=== PATIENT | male | born 1995 | race Caucasian/White ===

== ENCOUNTER 2019-03-18 13:23 | Inpatient (IN) ==
[2019-03-18 14:37] LABS: Basophils # (auto) 0.03 K/uL (0-0.2); Basophils % (auto) 0.3 %; Eosinophils # (auto) 0.14 K/uL (0-0.5); Eosinophils % (auto) 1.6 %; Hematocrit (blood only) 41.2 % (42-52); Immature Granulocytes # (auto) 0.02 K/uL (0.00-0.02); Immature Granulocytes % (auto) 0.2 %; Lymphocytes # (auto) 2.25 K/uL (1.2-3.4); Lymphocytes % (auto) 25.3 %; Mean Corpuscular Hgb Conc 36.4 g/dL (32-36); Mean Corpuscular Volume 83.2 fL (80-100); Mean Platelet Volume 9.8 fL (7.4-10.4); Monocytes # (auto) 0.72 K/uL (0.11-0.59); Monocytes % (auto) 8.1 %; Neutrophils # (auto) 5.74 K/uL (1.4-6.5); Neutrophils % (auto) 64.5 %; Platelet Count 274 K/uL (130-400); RDW Coefficient of Variation 12.4 % (11.5-14.5); RDW Standard Deviation 37.4 fL (36.4-46.3); Red Blood Count 4.95 M/uL (4.7-6.1)
[2019-03-18 15:07] LABS: Albumin Level 2.9 gm/dl (3.4-5.0); BUN Creatinine Ratio 12.2 (10-20); C Reactive Protein 9.35 mg/dl (0-0.29); Calcium 10.1 mg/dl (8.5-10.1); Creatinine Clr Calc Pharmacy 143.9 ml/min; Est GFR (African American) 141.3; Potassium 4.3 mmol/L (3.5-5.1)
[2019-03-18 15:10] LABS: Albumin Globulin Ratio 0.6 (0.9-2); Bilirubin,Total 0.4 mg/dl (0.2-1); Globulin 5.2 gm/dl (2.5-4.0); Total Protein 8.1 gm/dl (6.4-8.2)
[2019-03-18] MEDS ORDERED: CEFAZOLIN 2000MG 2,000 MG/15 ML SYR IV STA (15:11)
[2019-03-18] MEDS ORDERED: METOCLOPRAMIDE HCL INJ 5 MG/ML 2 ML VIAL IV PRN (16:19)
[2019-03-18] MEDS ORDERED: ACETAMINOPHEN W/CODEINE #3 1 TAB PO PRN (16:19)
[2019-03-18] MEDS ORDERED: ACETAMINOPHEN 325 MG TAB PO PRN (16:19)
[2019-03-18] MEDS ORDERED: ONDANSETRON INJ 2 MG/ML 2 ML VIAL IV PRN (16:19)
[2019-03-18] MEDS: LIDOCAINE/EPINEPHRINE 1% 20 ML VIAL INFIL ONE ×2 (16:22→16:56)
[2019-03-18] MEDS ORDERED: SODIUM CHLORIDE 0.9% 1000ML 1,000 ML IV SCH (16:30)
--- NOTE | 2019-03-18 16:43 | Emergency Department Note ---
History of Present Illness General Chief complaint: Knee Injury/Pain Stated complaint: SWOLLEN RT KNEE Time Seen by Provider: 03/18/19 13:42 History of Present Illness Maximum Pain Intensity: 7 This is a 23-year-old male that presents to the emergency department via private vehicle with complaints of "swollen right knee". The patient notes that he has been experiencing swelling of the right knee for several months, noting this started at the beginning of December. He notes that there was no direct trauma or injury that he is aware of. He states that initially he was seen and given a ntibiotics by Dr. Clay Figueroa. He states that he was given doxycycline. He took 14 days worth of this. He then was seen by orthopedics and had knee aspiration x 2. He states that this was negative for Lyme. He notes that since he was on doxycycline initially he has not taken any other antibiotics. He denies any fevers but notes that the swelling continues to recannulate in the right knee. He states that it was last drained about 3.[address] Aguero but notes that it appears to have reaccumulated noting an increase of pain. He notes significant difficulty with ambulation as well as with flexion and extension actively of the right knee. At rest the pain is not as severe but with ambulation is an 8 out of 10. He denies any tick bites that he is aware of. Allergies Allergy/AdvReac Type Severity Reaction Status Date / Time No Known Allergies Allergy Unverified 03/18/19 17:08 Past Med/Surg History Medical History No pertinent past medical history Surgical History Hx of hernia repair Social History Preferred Language: Colombian Communication Ability: Effective Drum Maker Required: No Beliefs That Will Affect Care: None Current Living Situation: Spouse and Family Other Information That Helps Us Care for You: No Feels Safe at Home: Yes Safety Concerns: Feels Safe At This Time Smoking Status: Current every day smoker Tobacco Type: cigarettes Cigarettes Per Day: 10 Do You Dip or Chew Tobacco: No Second Hand Exposure: No Tobacco Cess ation Education Requested by Patient: No Hx Alcohol Use: No Hx Substance Use: No Review of Systems A total of 10 systems reviewed and were otherwise negative Physical Exam Vital Signs Vital Signs - 24 hr 03/18/19 13:25 03/18/19 15:30 Temperature 36.7 C Temperature Source Oral Sepsis Recent Fever Within 48 Hours No Sepsis New/Unexplained Change in Mental Status No Sepsis Action Taken by Nursing No Action Required Pulse Rate 125 H Pulse Rate [Finger] 105 H Pulse Rhythm Regular Pulse Strength Normal Respiratory Rate 20 18 Respiratory Effort / Characteristics Non-Labored Spontaneous Respiratory Depth Normal Respiratory Pattern Regular Blood Pressure 132/84 Blood Pressure [Right Arm] 129/79 Blood Pressure Mean 100 Blood Pressure Mean [Right Arm] 95 Blood Pressure Position Sitting Blood Pressure Position [Right Arm] Sitting Pulse Oximetry 98 95 Oxygen Delivery Method Room Air Room Air VITAL SIGNS - Vital signs and nursing notes were reviewed. Stable and afebrile. GENERAL -23-year-old male appearing his stated age who is in no acute distress. Communicates well with provider and answers questions appropriately. SKIN -the right knee is edematous diffusely, and there is erythema extending on the medial aspect inferiorly on the medial aspect of the patient's spencer to the level of the right ankle. It is warm compared to the left knee. No breaks in integument HEAD - NC/AT. EYES - PERRL with EOMI bilaterally. Sclera anicteric. Palpebral conjunctiva pink and moist with no injection noted. EARS - No deformities of external structures noted on gross examination bilaterally. NOSE - Midline and without cyanosis. No epistaxis or purulent drainage noted. MOUTH/OROPHARYNX - Without perioral cyanosis. NECK - Neck with FROM. No nuchal rigidity. LUNGS - Chest wall symmetric without accessory muscle use, intercostals retractions, or central cyanosis. Normal vesicular breath sounds CTA B/L. No wheezes, rales, or rhonchi appreciated. CARDIAC - RRR with S1/S2. No murmur, rubs, or gallops appreciated. EXTREMITIES - No clubbing or peripheral cyanosis. No pretibial edema present. There is minimal both active and passive flexion/extension of the patient's right knee secondary to pain. Skin as above. No ligamentous laxity. No break in integument. No fluctuance to palpation. +5/5 strength noted in UE/LE bilaterally. Patient is neurovascularly intact in the right lower extremity. NEUROLOGIC - Cranial nerves II through XII grossly intact. PSYCH - A&O, and cooperates fully with examiner. Pt is very pleasant and interacts well with examiner. Course Administered Medications Acetaminophen (Tylenol) 650 mg PO Q6H PRN PRN Reason: Fever or Headache Stop: 04/17/19 16:18 Last Admin: 03/18/19 20:18 Dose: 650 mg Documented by: [id number] Sodium Chloride (Nss 1000ml) 1,000 mls @ 50 mls/hr IV .Q20H KYLER Stop: 04/17/19 16:29 Last Admin: 03/18/19 18:10 Dose: 50 mls/hr Documented by: [id number] Doxycycline Hyclate 100 mg/ (Dextrose) 110 mls @ 50 mls/hr IV Q12H KYLER Stop: 03/28/19 17:29 Last Admin: 03/18/19 18:16 Dose: 50 mls/hr Documented by: [id number] Discontinued Medications Cefazolin Sodium (Ancef 2000mg) 2,000 mg in 15 mls @ 3.75 mls/min IV NOW STA Stop: 03/18/19 15:14 Last Admin: 03/18/19 15:29 Dose: 3.75 mls/min Documented by: [id number] Lidocaine/Epinephrine (Xylocaine/Epinephrine 1%) 20 ml INFIL NOW ONE Stop: 03/18/19 16:17 Last Admin: 03/18/19 16:56 Dose: Not Given Documented by: [id number] Medical Decision Making Laboratory Data Result diagrams: 03/18/19 14:27 03/18/19 14:27 Lab Results 03/18/19 03/18/19 03/18/19 Range/Units 14:27 14:27 14:27 WBC 8.90 (4.8-10.8) K/uL RBC 4.95 (4.7-6.1) M/uL Hgb 15.0 (14.0-18.0) g/dL Hct 41.2 L (42-52) % MCV 83.2 (80-100) fL MCH 30.3 (25-34) pg MCHC 36.4 H (32-36) g/dL RDW Std Deviation 37.4 (36.4-46.3) fL RDW Coeff of Krish 12.4 (11.5-14.5) % Plt Count 274 (130-400) K/uL MPV 9.8 (7.4-10.4) fL Immature Gran % (Auto) 0.2 % Neut % (Auto) 64.5 % Lymph % (Auto) 25.3 % [place] % (Auto) 8.1 % Eos % (Auto) 1.6 % Baso % (Auto) 0.3 % Immature Gran # (Auto) 0.02 (0.00-0.02) K/uL Neut # (Auto) 5.74 (1.4-6.5) K/uL Lymph # (Auto) 2.25 (1.2-3.4) K/uL [place] # (Auto) 0.72 H (0.11-0.59) K/uL Eos # (Auto) 0.14 (0-0.5) K/uL Baso # (Auto) 0.03 (0-0.2) K/uL ESR > 90 H (0-14) mm/hr Sodium 138 (136-145) mmol/L Potassium 4.3 (3.5-5.1) mmol/L Chloride 103 (98-107) mmol/L Carbon Dioxide 29 (21-32) mmol/L Anion Gap 6.0 (3-11) BUN 10 (7-18) mg/dl Creatinine 0.85 (0.6-1.4) mg/dl Est Cr Clr Drug Dosing 143.9 ml/min Est GFR ( Amer) 141.3 Est GFR (Non-Af Amer) 122.0 BUN/Creatinine Ratio 12.2 (10-20) Glucose 86 (70-99) mg/dl Calcium 10.1 (8.5-10.1) mg/dl Total Bilirubin 0.4 (0.2-1) mg/dl AST 13 L (15-37) U/L ALT 23 (12-78) U/L Alkaline Phosphatase 72 (45-117) U/L C-Reactive Protein 9.35 H (0-0.29) mg/dl Total Protein 8.1 (6.4-8.2) gm/dl Albumin 2.9 L (3.4-5.0) gm/dl Globulin 5.2 H (2.5-4.0) gm/dl Albumin/Globulin Ratio 0.6 L (0.9-2) MDM Narrative Patient was seen and evaluated as above in room D3. Review was performed of nursing notes and vital signs. After obtaining a thorough history and physical examination the above work up was performed. He presents to us today with a swollen right knee. I did review the patient's previous labs that were per formed on the right knee aspirate. It appears that he has had 2 joint aspirations. The first of which was on February 01 and the second of which was on February 22. The patient notes that he already had imaging of the knee. On exam, he looks well. He is afebrile. He is nontoxic. He is however tachycardic on arrival in the 120s. It appears the patient also had labs performed and had a negative Lyme test, rheumatoid factor, NEEL, HLA-B27. The patient's white cell count in the first aspirate was around 42,000 with the second being around 59,000. He also had 2 cultures from the synovial fluid on February 01, as well as February 22 that grew out staph aureus that the first time was resistant to tetr acyclines but the other time was pansensitive. It is not clear whether or not this is contaminant. Decision was made to discuss this with the on-call orthopedic doctor. I spoke to Dr. Sanchez. We discussed broad-spectrum antibiotics to start. Patient was given 2 g of Ancef after I discussed this with pharmacist. Dr. Sanchez also came to evaluate the patient. He performed joint aspiration. This was sent to the lab and I ordered the appropriate tests for such. Unfortunately, there was a very small amount of synovial fluid that was able to be aspirated therefore the Lyme synovial fluid test had to be canceled[place] [id number]. Patient CBC reveals no leukocytosis or concerning anemia. He does have elevation of ESR at greater than 90 with CRP now at 9.35. Decision was then made to admit the patient for further evaluation and management of the right knee edema, erythema and pain. He ordered doxycycline as well. Patient declined pain medication while here in the emergency department. Case was discussed with the attending physician. In the evaluation and treatment of this patient, the following differential diagnoses were considered: Patellar Fracture, Tibial Plateau Fracture, Distal Femur Fracture, ACL Injury, PCL Injury, Collateral Ligament Injury, Pes Anserine Bursitis, Maisonneuve Fracture. Impression & Plan Pain in right knee Discharge Plan Visit Data *Final* Discharge Date/Time: 03/18/19 16:52 Chief Complaint: Knee Injury/Pain Stated Complaint: SWOLLEN RT KNEE ED Provider: Jovan Aguirre ED Midlevel Provider: Colin Norwood Discharge Problem: Pain in right knee Patient Disposition: Admitted As Inpatient Condition: Good Discharge Instructions Interventions: ED Discharge Assessment Last Done: 03/18/19 16:52
--- NOTE | 2019-03-18 17:19 | History and Physical Report ---
DATE OF ADMISSION: 03/18/2019 CHIEF COMPLAINT: Right knee pain. HISTORY OF PRESENT ILLNESS: Jeromy is a 23-year-old male from [facility]. He presents today with a several-week duration of right lower extremity, particularly right knee pain that has been ongoing. He has been treated in our office on 2 different occasions with aspirations and he seems to go backward. He presents, he is comfortable. No fevers, sweats, chills, pulse slightly elevated, afebrile with a right swollen knee with a lot cellulitis. PAST MEDICAL HISTORY: Negative for COPD, diabetes, hypertension, and tested negative for Lyme's. PAST SURGICAL HISTORY: Negative. ALLERGIES: Denied. SOCIAL HISTORY: Nonsmoker, non-ETOH. REVIEW OF SYSTEMS: Denies any blurred vision or double vision. Denies any chest pain or palpitations. Denies fevers, sweats, or chills. No nausea or vomiting. He has had the orthopedic discomfort of his right knee. PHYSICAL EXAMINATION: VITAL SIGNS: Pulse 105, blood pressure 120/80, respirations 18, temperature 36.7, and O2 sat 95. CARDIAC: Normal S1, S2, no S3. LUNGS: Clear to auscultation. ABDOMEN: Soft, nontender. EXTREMITIES: His knee was diffusely swollen. It seemed to be intraarticular, but even surrounded more of a bogginess about the whole extremity with significant cellulitis even on the medial side. Decreased range of motion but no gross instability. X-RAYS: Normal. ASSESSMENT: Lyme disease versus Staphylococcus infection. I think it is more of a Lyme's type pattern. I think it might have just not shown up on his test and converted, but nevertheless it is a significant problem. PLAN: I am admitting him to my service. I will place him on Ancef for Staph coverage, doxycycline for Lyme coverage, ice, rest and I will check on him in about 12 hours. I did make him n.p.o. after midnight. I did aspirate his knee here in the ER at several attempts from the superior lateral portal and all I could get was maybe 2-3 mL of discolored fluid.
[2019-03-18] MEDS: DOXYCYCLINE HYCLATE 100 MG in DEXTROSE 5% 100 ML IV SCH (18:16)
[2019-03-18 18:24] LABS: Appearance Synovial Fluid CLOUDY; Color Synovial Fluid PALE YELLOW; Mononuclear WBC Synovial 3.4 %; Polynuclear WBC Synovial 96.6 %; RBC Synovial Fluid (A) 16000 /uL; Source Synovial Fluid KNEE; WBC Synovial Fluid (A) 73880 /uL (0-200)
[2019-03-19] MEDS: DOXYCYCLINE HYCLATE 100 MG in DEXTROSE 5% 100 ML IV SCH (05:39)
--- NOTE | 2019-03-19 07:17 | History & Physical Bridge Note ---
Date of Service March 19, 2019 History & Physical Bridge Note I have examined the patient, reviewed the History & Physical and in the interval since the performance of the History & Physical I have noted the following changes of clinical significance: no changes noted
--- NOTE | 2019-03-19 07:18 | Anesthesiology Consultation ---
Date of Service March 19, 2019 Assessment & Plan (1) Encounter for pre-operative examination: Chart Review Chart Review: Acceptable Risk for Surgery and Patient NOT seen in Pre Admission Testing Consults Requested none ASA ASA1 History Surgery Operation Date: 03/19/19 07:00 Proposed Procedures p Arthroscopy Knee(Right) - Edenilson Figueroa MD Height/Weight Height: 6 ft 1 in Weight: 75.9 kg Allergies Allergy/AdvReac Type Severity Reaction Status Date / Time No Known Allergies Allergy Unverified 03/18/19 17:08 Medications Active Medications Generic Name Dose Route Start Last Admin Trade Name Freq PRN Reason Stop Dose Admin Acetaminophen 650 mg 03/18/19 16:19 03/18/19 20:18 Tylenol PO 04/17/19 16:18 650 mg Q6H PRN Administration Fever or Headache Sodium Chloride 1,000 mls @ 50 mls/hr 03/18/19 16:30 03/18/19 18:10 Nss 1000ml IV 04/17/19 16:29 50 mls/hr .Q20H KYLER Administration Doxycycline Hyclate 100 mg/ 110 mls @ 50 mls/hr 03/18/19 17:30 03/19/19 05:39 Dextrose IV 03/28/19 17:29 50 mls/hr Q12H KYLER Administration NPO Date Last Intake of Fluids: 03/19/19 Time Last Intake of Fluids: 00:00 Date Last Intake of Solids: 03/18/19 Time Last Intake of Solids: 23:00 Last Intake of Solids Comment: prior to shift. Past Medical History Medical History No pertinent past medical history Past Surgical History Surgical History Hx of hernia repair Social History Smoking Status: Current every day smoker tobacco type: cigarettes Smoking cigarettes per day: 10 Do You Dip or Chew Tobacco: No Hx Alcohol Use: No Hx Substance Use: No substance use type: does not use Physical Exam Vital Signs Last Vital Signs Temp 36.8 C 03/19/19 00:00 Pulse 99 H 03/19/19 00:00 Resp 16 03/19/19 00:00 BP 116/68 03/19/19 00:00 Pulse Ox 98 03/19/19 00:00
[2019-03-19] MEDS ORDERED: ePHEDrine sulfate 50 MG/ML AMP IV PRN (07:33)
[2019-03-19] MEDS ORDERED: ATROPINE SULFATE 0.1 MG/ML 10ML SYR IV PRN (07:33)
--- NOTE | 2019-03-19 08:59 | Post Operative Brief Note ---
Immediate Post Op Note v1 Date of Surgery March 19, 2019 Pre & Post Diagnosis Operation Date: 03/19/19 07:00 Pre-Op Diagnosis: Right knee septic arthritis Post-Op Diagnosis: Right knee septic arthritis + Medial Meniscus Tear Procedure Operation Date: 03/19/19 07:00 Actual Procedures p Arthroscopic Irrigation and Debridement right knee(Right) + Partial Medial Menisectomy- Edenilson Figueroa MD Surgeon Edenilson Figueroa MD Furnace Tapper None Estimated Blood Loss 5 Findings Consistent with Post-Op Diagnosis Fluids 400 cc Specimens Right Knee Fluid + Tissue Drains Keaton-Zurita Drain (19fr) Anesthesia Type General Complications none Disposition Accompanied Patient To Recovery: Yes Disposition: Recovery Room
[2019-03-19 09:06] LABS: Appearance Synovial Fluid TURBID; Color Synovial Fluid AMBER; Mononuclear WBC Synovial 13.9 %; Polynuclear WBC Synovial 86.1 %; RBC Synovial Fluid (A) 30000 /uL; Source Synovial Fluid KNEE; WBC Synovial Fluid (A) 87260 /uL (0-200)
[2019-03-19] MEDS: fentaNYL citrate 100 MCG/2 ML VIAL IV PRN ×2 (09:15→09:20)
[2019-03-19] MEDS ORDERED: CEFAZOLIN 2000MG 2,000 MG/15 ML SYR IV ONE (09:25)
[2019-03-19] MEDS ORDERED: CEFAZOLIN 2,000 MG/15 ML IV PUSH IV ONE (09:27)
--- NOTE | 2019-03-19 09:32 | Anesthesiology Progress Note ---
Date of Service March 19, 2019 Anesthesia Post Procedure Vital Signs Vital Signs: Temp Pulse Pulse Pulse Resp BP BP 03/19/19 09:01 37.3 C 93 H 18 136/96 03/19/19 07:17 36.6 C 80 16 130/84 03/19/19 00:00 36.8 C 99 H 16 116/68 03/18/19 17:25 37 C 98 H 14 119/71 03/18/19 16:52 107 H 18 136/79 03/18/19 15:30 105 H 18 129/79 03/18/19 13:25 36.7 C 125 H 20 132/84 Pulse Ox 03/19/19 09:01 98 03/19/19 07:17 97 03/19/19 00:00 98 03/18/19 17:25 95 03/18/19 16:52 96 03/18/19 15:30 95 03/18/19 13:25 98 Pain Intensity Right Knee: Pain Intensity: 7 Transfer of Care Handoff Completed per policy Notes Mental Status: alert / awake / arousable Patient Amnestic to Procedure: Yes Nausea / Vomiting: adequately controlled Pain: adequately controlled Airway Patency, RR, SpO2: stable & adequate BP & HR: stable & adequate Hydration State: stable & adequate Anesthetic Complications: no major complications apparent and Pt Satisfied with anesthetic care
[2019-03-19] MEDS ORDERED: MAGNESIUM HYDROXIDE SUSP 30 ML UDC PO PRN (09:53)
[2019-03-19] MEDS ORDERED: ONDANSETRON INJ 2 MG/ML 2 ML VIAL IV PRN (09:53)
[2019-03-19] MEDS ORDERED: OXYCODONE HCL IR 5 MG TAB (IMMEDIATE RELEASE) PO PRN (09:53)
[2019-03-19] MEDS ORDERED: HYDROmorphone INJ 0.5 MG/0.5 ML SYR IV PRN (09:53)
[2019-03-19] MEDS ORDERED: SODIUM CHLORIDE 0.9% 1000ML 1,000 ML IV SCH (09:53)
[2019-03-19] MEDS ORDERED: BISACODYL 10 MG SUPP PR PRN (09:53)
[2019-03-19] MEDS ORDERED: NALOXONE HCL 0.4 MG/1 ML VIAL/CARP IV PRN (09:53)
[2019-03-19] MEDS ORDERED: METOCLOPRAMIDE HCL INJ 5 MG/ML 2 ML VIAL IV PRN (09:53)
[2019-03-19] MEDS ORDERED: ALUMINUM/MAGNESIUM SUSP 30 ML UDC PO PRN (09:53)
[2019-03-19] MEDS: ACETAMINOPHEN 500 MG TAB PO SCH ×2 (13:11→20:59)
[2019-03-19] MEDS: KETOROLAC 30 MG/ML VIAL IV SCH ×2 (13:12→18:22)
--- NOTE | 2019-03-19 15:12 | Operative Report ---
DATE OF OPERATION: 03/19/2019 SURGEON: Edenilson Figueroa MD IT RISK AND ASSURANCE SENIOR MANAGER: None. PREOPERATIVE DIAGNOSIS: Right knee septic arthritis. POSTOPERATIVE DIAGNOSES: 1. Right knee septic arthritis. 2. Right knee radial medial meniscus tear. PROCEDURE PERFORMED: 1. Right knee exam under anesthesia. 2. Right knee diagnostic arthroscopy. 3. Right knee arthroscopic extensive synovectomy. 4. Right knee arthroscopic irrigation and debridement. 5. Right knee arthroscopic partial medial meniscectomy. COMPLICATIONS: None. ESTIMATED BLOOD LOSS: 5 mL. TOURNIQUET TIME: 45 minutes at 300 mmHg. FLUID REPLACEMENT: 400 mL crystalloid fluid replacement. ANESTHESIA: General. SPECIMENS: 1. Right knee fluid sent for stat gram stain, aerobic and anaerobic culture. 2. Right knee fluid sent for cell count with differential as well as a Lyme DNA/PCR testing. 3. Right knee tissue sent for stat gram stain, aerobic and anaerobic culture. OPERATIVE INDICATIONS: The patient is a 23-year-old [facility] gentleman who has had about 6 to 8-week period of intermittent on and off pain and discomfort and swelling of his knee. He has been seen and evaluated on several occasions by Dr. Aguero. He had his knee aspirated on several occasions and had an extensive workup. Workup was negative for Lyme disease although his clinical course was most suspicious for Lyme disease. He was treated with some course of doxycycline but continued to have persistent pain and swelling in his knee. He also had a rheumatological workup, which was negative. He did have 2 aspirates, which revealed some Staph aureus. The patient has had recurrent swelling and now indicated for irrigation and debridement for a presumed septic arthritis. OPERATIVE FINDINGS: Operative findings were a large knee joint effusion. His range of motion was 5 degree short of full extension, 120 degrees of flexion limited by his effusion. There was no instability. ARTHROSCOPIC FINDINGS: Arthroscopic findings revealed a large inflammatory effusion. He had extensive synovitis throughout his knee. He had some diffuse mild degenerative changes and chondral disease throughout. In the medial compartment, there was a very small radial tear of the medial meniscus. The lateral meniscus was intact. The ACL and PCL were intact. DESCRIPTION OF PROCEDURE: The patient was taken to the operating room, identified, and placed on the operating table in supine position. All contact areas were appropriately padded. IV antibiotics were provided by anesthesia team. A general anesthetic was implemented by anesthesia team. All additional antibiotics were held at this point. He was given some preoperative antibiotics before. General anesthetic was implemented. A right thigh tourniquet was then placed. The right knee was then examined under anesthesia with findings as described above. The right leg was then prepped and draped in usual sterile fashion. The right leg was elevated and exsanguinated with Esmarch, and tourniquet was placed at 300 mmHg. Routine right knee arthroscopy was then performed through typical anteromedial and anterolateral portals. A superolateral outflow portal was established for outflow. Upon creating the outflow portal, I took some of this fluid and sent it off for culture and also for the cell count with differential and assessment for Lyme disease. There was some tissue that was taken as well which was sent for stat gram stain, aerobic and anaerobic culture. Routine right knee arthroscopy was then performed. We did an extensive synovectomy of the entire knee including the suprapatellar pouch, medial and lateral gutters, and the anterior aspect of the knee as well as the fat pad. With use of motorized hand controlled instruments, I resected the small radial tear of the medial meniscus. I then extensively irrigated the remainder of the knee out with a total of 15 liters of saline. Once this was complete, a large 19-Mauritian MORGAN drain was placed in the suprapatellar pouch. The portal sites were then closed with 3-0 Prolene suture in a simple fashion. I did sew the drain in to make sure it did not fall out. A sterile dressing with Xeroform, 4 x 4, sterile cast padding, and Rafa bandage were applied. The tourniquet was then let down for a tourniquet time of 45 minutes. The patient was then brought out of general anesthesia and transferred to the recovery room in stable condition. The patient tolerated the procedure well with no complications. All needle and sponge counts were correct at the end of the operation. I attest to the content of the Intraoperative Record and any orders documented therein. Any exception s are noted below.
[2019-03-19] MEDS: CEFAZOLIN 2000MG 2,000 MG/15 ML SYR IV SCH (15:19)
--- NOTE | 2019-03-19 16:04 | Infectious Disease Consult ---
Date of Consultation March 19, 2019 Assessment & Plan (1) Septic arthritis of knee, right: 23-year-old male with septic arthritis of the right knee with methicillin sensitive staph aureus. Current treatment with IV cefazolin appropriate, doxycycline has been discontinued. Will likely need a more prolonged course of IV antibiotics, and will need PICC line for outpatient therapy. May also require repeat arthroscopy given presence of staph aureus. Will discuss further with all involved. Will follow. (2) MSSA (methicillin susceptible Staphylococcus aureus) infection: History of Present Illness Reason for Consultation: Right knee infection, bacterial +/- Lyme disease Attending Physician: Nain Sanchez DO History of Present Illness 23-year-old male in prior good health was admitted to the hospital with recent onset of severe swelling of his right knee. Patient states that he has had several years of intermittent right knee pain with swelling, that generally responds quickly to conservative therapy. More recently, he had progressively worsening swelling, had aspirations done with transient improvement, given course of doxycycline without help. He now is undergone arthroscopic surgery with finding of evidence of infection with positive culture for staph aureus, methicillin sensitive. Lyme PCR is negative, Lyme serology negative. Patient currently being treated with doxycycline and cefazolin. No obvious previous skin infections or other source for staph. Tolerating his antibiotics without apparent difficulty. He denies any significant fevers although has had some episodes of night sweats. 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 Beliefs That Will Affect Care: None Current Living Situation: Spouse and Family Other Information That Helps Us Care for You: No Feels Safe at Home: Yes Safety Concerns: Feels Safe At This Time Smoking Status: Current every day smoker Tobacco Type: cigarettes Cigarettes Per Day: 10 Do You Dip or Chew Tobacco: No Second Hand Exposure: No Tobacco Cessation Education Requested by Patient: No Hx Alcohol Use: No Hx Substance Use: No Review of Systems Review of Systems: All systems reviewed & are unremarkable except as noted in HPI & below Physical Exam Constitutional: WD/WN, vitals as above comfortable; no acute distress Eyes: PERRL, conjunctivae normal, anicteric sclerae ENMT: external ear and nose normal, oropharynx normal Neck: trachea midline, no thyromegaly neck nontender Respiratory: normal respiratory effort, lungs clear to auscultation normal percussion; does not use accessory muscles Cardiovascular: Rate/Rhythm: regular rate and regular rhythm Heart Sounds: normal S1 and normal S2; no gallop, no murmur and no cardiac rub Vessels: normal peripheral pulses; no JVD Gastrointestinal (Abdomen): normal bowel sounds, soft, nontender, no hepatosplenomegaly Musculoskeletal: no cyanosis or clubbing, extremities motor strength 5/5 Spine: thoracic spine normal to inspection and lumbar spine normal to inspection; no cervical spinal tenderness Skin: no rashes, warm and dry normal turgor Surgical dressing intact right knee Neurologic: patellar DTR's 2+ bilat, sensation intact no focal motor deficits Psychiatric: A+Ox3, euthymic affect Orientation: cooperative Lymphatic: no cervical or axillary lymphadenopathy no inguinal lymphadenopathy Results & Data Vital Signs (Past 12 Hours) Vital Signs Temp Pulse Pulse Pulse Resp BP BP 03/19/19 15:16 36.5 C 89 20 125/77 03/19/19 13:00 85 15 127/75 03/19/19 11:55 77 16 127/80 03/19/19 10:52 75 16 131/85 03/19/19 10:24 36.7 C 82 15 127/83 03/19/19 09:55 36.6 C 80 16 125/82 03/19/19 09:46 74 14 125/85 03/19/19 09:45 69 15 03/19/19 09:41 71 13 125/85 03/19/19 09:40 62 12 03/19/19 09:36 68 14 133/90 03/19/19 09:35 95 H 14 03/19/19 09:33 36.8 C 03/19/19 09:32 79 14 03/19/19 09:31 81 12 133/93 03/19/19 09:30 72 14 03/19/19 09:26 66 13 132/98 03/19/19 09:25 79 13 03/19/19 09:21 68 12 137/90 03/19/19 09:20 78 7 L 03/19/19 09:16 79 12 126/87 03/19/19 09:15 59 L 14 03/19/19 09:10 66 15 133/95 03/19/19 09:06 70 15 133/96 03/19/19 09:05 76 17 03/19/19 09:01 37.3 C 83 93 H 17 136/96 136/96 03/19/19 07:17 36.6 C 80 16 130/84 Pulse Ox 03/19/19 15:16 95 03/19/19 13:00 95 03/19/19 11:55 97 03/19/19 10:52 97 03/19/19 10:24 96 03/19/19 09:55 95 03/19/19 09:46 96 03/19/19 09:45 97 03/19/19 09:41 98 03/19/19 09:40 98 03/19/19 09:36 98 03/19/19 09:35 95 03/19/19 09:33 96 03/19/19 09:32 98 03/19/19 09:31 98 03/19/19 09:30 96 03/19/19 09:26 100 03/19/19 09:25 100 03/19/19 09:21 100 03/19/19 09:20 99 03/19/19 09:16 100 03/19/19 09:15 100 03/19/19 09:10 100 03/19/19 09:06 100 03/19/19 09:05 100 03/19/19 09:01 100 03/19/19 07:17 97 Laboratory Results Laboratory Results - last 48 hr 03/18/19 03/18/19 03/18/19 14:27 14:27 14:27 WBC 8.90 RBC 4.95 Hgb 15.0 Hct 41.2 L MCV 83.2 MCH 30.3 MCHC 36.4 H RDW Std Deviation 37.4 RDW Coeff of Krish 12.4 Plt Count 274 MPV 9.8 Immature Gran % (Auto) 0.2 Neut % (Auto) 64.5 Lymph % (Auto) 25.3 Mcmullen % (Auto) 8.1 Eos % (Auto) 1.6 Baso % (Auto) 0.3 Immature Gran # (Auto) 0.02 Neut # (Auto) 5.74 Lymph # (Auto) 2.25 Mcmullen # (Auto) 0.72 H Eos # (Auto) 0.14 Baso # (Auto) 0.03 ESR > 90 H Sodium 138 Potassium 4.3 Chloride 103 Carbon Dioxide 29 Anion Gap 6.0 BUN 10 Creatinine 0.85 Est Cr Clr Drug Dosing 143.9 Est GFR ( Amer) 141.3 Est GFR (Non-Af Amer) 122.0 BUN/Creatinine Ratio 12.2 Glucose 86 Calcium 10.1 Total Bilirubin 0.4 AST 13 L ALT 23 Alkaline Phosphatase 72 C-Reactive Protein 9.35 H Total Protein 8.1 Albumin 2.9 L Globulin 5.2 H Albumin/Globulin Ratio 0.6 L Fluid Source Fluid Color Fluid Appearance Fluid WBC Fluid RBC Fluid Polynuclear WBCs Fld Polynuclear WBCs % Fluid Mononuclear WBCs Fld Mononuclear WBCs % Fluid Other Cells % Fld Lyme DNA (PCR) Synovial Source Synovial Color Synovial Appearance Synovial WBC Synovial RBC Synovial Polynuclear % Synovial Mononuclear % Lyme Specimen Source 03/18/19 03/18/19 03/19/19 16:25 16:25 08:00 WBC RBC Hgb Hct MCV MCH MCHC RDW Std Deviation RDW Coeff of Krish Plt Count MPV Immature Gran % (Auto) Neut % (Auto) Lymph % (Auto) Mcmullen % (Auto) Eos % (Auto) Baso % (Auto) Immature Gran # (Auto) Neut # (Auto) Lymph # (Auto) Mcmullen # (Auto) Eos # (Auto) Baso # (Auto) ESR Sodium Potassium Chloride Carbon Dioxide Anion Gap BUN Creatinine Est Cr Clr Drug Dosing Est GFR ( Amer) Est GFR (Non-Af Amer) BUN/Creatinine Ratio Glucose Calcium Total Bilirubin AST ALT Alkaline Phosphatase C-Reactive Protein Total Protein Albumin Globulin Albumin/Globulin Ratio Fluid Source Cancelled Fluid Color Cancelled Fluid Appearance Cancelled Fluid WBC Cancelled Fluid RBC Cancelled Fluid Polynuclear WBCs Cancelled Fld Polynuclear WBCs % Cancelled Fluid Mononuclear WBCs Cancelled Fld Mononuclear WBCs % Cancelled Fluid Other Cells % Cancelled Fld Lyme DNA (PCR) Cancelled Synovial Source KNEE KNEE Synovial Color PALE YELLOW FRANK Synovial Appearance CLOUDY TURBID Synovial WBC 09371 H 20764 H Synovial RBC [id number] Synovial Polynuclear % 96.6 86.1 Synovial Mononuclear % 3.4 13.9 Lyme Specimen Source Cancelled Diagnostic Findings Microbiology 03/18/19 15:26 Blood Aerobic Blood Culture - Preliminary No growth in Aerobic bottle after 24 hours. 03/18/19 15:26 Blood Anaerobic Blood Culture - Preliminary No growth in Anaerobic bottle after 24 hours. 03/18/19 14:27 Blood Aerobic Blood Culture - Preliminary No growth in Aerobic bottle after 24 hours. 03/18/19 14:27 Blood Anaerobic Blood Culture - Preliminary No growth in Anaerobic bottle after 24 hours. 03/18/19 16:25 Knee,Right Gram Stain - Final 03/18/19 16:25 Knee,Right Joint Fluid Culture - Preliminary Staphylococcus aureus 03/19/19 08:00 Knee,Right Gram Stain - Final 03/19/19 08:00 Knee Gram Stain - Final
[2019-03-19] MEDS: ASPIRIN 81 MG ECTAB PO SCH (20:58)
[2019-03-19] MEDS: DOCUSATE SODIUM 100 MG CAP PO SCH (20:58)
[2019-03-19] MEDS: SENNA 8.6 MG TAB PO SCH (20:59)
[2019-03-20] MEDS: KETOROLAC 30 MG/ML VIAL IV SCH ×4 (00:16→17:40)
[2019-03-20] MEDS: CEFAZOLIN 2000MG 2,000 MG/15 ML SYR IV SCH ×3 (00:16→16:10)
[2019-03-20] MEDS: ACETAMINOPHEN 500 MG TAB PO SCH ×3 (05:33→21:11)
[2019-03-20] MEDS: DOCUSATE SODIUM 100 MG CAP PO SCH ×2 (07:28→21:09)
[2019-03-20] MEDS: MULTIVITAMIN TAB PO SCH (07:29)
[2019-03-20] MEDS: ASPIRIN 81 MG ECTAB PO SCH ×2 (07:29→21:11)
--- NOTE | 2019-03-20 08:50 | Progress Note ---
DATE: 03/20/2019 SUBJECTIVE: A 23-year-old [facility] gentleman postop day 1 from an I and D of a septic knee and a partial medial meniscectomy. He is doing much better. Pain seems to be improved. No new complaints. No chest pain or shortness of breath. Not feeling dizzy or lightheaded. OBJECTIVE: VITAL SIGNS: Temperature is 36.3. Vital signs stable. PHYSICAL EXAMINATION: GENERAL: Reveals a pleasant, middle-aged male. He is lying in bed, looks pretty comfortable. EXTREMITIES: Examination of the right leg reveals the dressing to be clean, dry and intact. There is no drainage. He can dorsiflex and plantarflex his foot appropriately. He is neurologically intact. LABORATORIES: Knee aspirate results reveals 87,000 white cells, 86% polys. Gram stain, no organisms. Cultures are pending. ASSESSMENT: A 23-year-old gentleman postoperative day 1 from an arthroscopic irrigation and debridement and a partial medial meniscectomy for a septic knee. He is doing better. Pain is improved. PLAN: 1. DVT prophylaxis including thigh-high TEDs, SCDs, and aspirin twice a day. 2. PT/OT. He can weightbear as tolerated in the right leg. 3. IV antibiotics. He will likely need a course of 2-4 weeks of IV antibiotics. We will look into getting a PICC line placed. 4. Disposition: We are going to leave the drain in today. We will change the bandage tomorrow and remove the drain and get the PICC line in, and hopefully, try and get him home tomorrow.
[2019-03-20] MEDS: SENNA 8.6 MG TAB PO SCH (21:10)
[2019-03-21] MEDS: CEFAZOLIN 2000MG 2,000 MG/15 ML SYR IV SCH ×2 (00:17→08:24)
[2019-03-21] MEDS: KETOROLAC 30 MG/ML VIAL IV SCH ×2 (00:17→05:40)
[2019-03-21] MEDS: ACETAMINOPHEN 500 MG TAB PO SCH ×2 (05:40→13:57)
[2019-03-21] MEDS: ASPIRIN 81 MG ECTAB PO SCH (07:53)
[2019-03-21] MEDS: MULTIVITAMIN TAB PO SCH (07:53)
[2019-03-21] MEDS: DOCUSATE SODIUM 100 MG CAP PO SCH (07:54)
--- NOTE | 2019-03-21 07:57 | Anesthesiology Progress Note ---
Date of Service March 21, 2019 Anesthesia Post Procedure Vital Signs Vital Signs: Temp Pulse Resp BP Pulse Ox 03/21/19 07:11 36.4 C L 85 18 115/72 96 03/20/19 23:18 36.6 C 84 16 115/73 97 03/20/19 14:57 36.6 C 73 16 113/64 97 03/20/19 14:31 36.6 C 93 H 18 110/58 L 96 Pain Intensity Right Knee: Pain Intensity: 4 Notes Mental Status: alert / awake / arousable and participated in evaluation Patient Amnestic to Procedure: Yes Nausea / Vomiting: adequately controlled Pain: adequately controlled Airway Patency, RR, SpO2: stable & adequate BP & HR: stable & adequate Hydration State: stable & adequate Anesthetic Complications: no major complications apparent and Pt Satisfied with anesthetic care
[2019-03-21] MEDS ORDERED: cefTRIAXone SODIUM 2,000 MG in DEXTROSE 5% 50 ML IV SCH (12:00)
--- NOTE | 2019-03-21 12:28 | Infectious Disease Progress Nt ---
Date of Service March 21, 2019 Assessment & Plan (1) Septic arthritis of knee, right: 23-year-old male with septic arthritis of the right knee with methicillin sensitive staph aureus. Patient will require 2 to 4 weeks of IV antibiotics, would recommend use of IV ceftriaxone 2 g daily as easiest alternative for patient and his family. Would like to see in follow-up in 2 weeks the office. (2) MSSA (methicillin susceptible Staphylococcus aureus) infection: Subjective Patient seen in follow-up for septic arthritis of knee. Pain better controlled. Remains afebrile. Cultures growing methicillin sensitive staph aureus. Review of Systems Review of Systems: All systems reviewed & are unremarkable except as noted in HPI & below Physical Exam Constitutional: WD/WN, vitals as above comfortable; no acute distress Eyes: PERRL, conjunctivae normal, anicteric sclerae ENMT: external ear and nose normal, oropharynx normal Neck: trachea midline, no thyromegaly neck nontender Respiratory: normal respiratory effort, lungs clear to auscultation normal percussion; does not use accessory muscles Cardiovascular: Rate/Rhythm: regular rate and regular rhythm Heart Sounds: normal S1 and normal S2; no gallop, no murmur and no cardiac rub Vessels: normal peripheral pulses; no JVD Gastrointestinal (Abdomen): normal bowel sounds, soft, nontender, no hepatosplenomegaly Musculoskeletal: no cyanosis or clubbing, extremities motor strength 5/5 Spine: thoracic spine normal to inspection and lumbar spine normal to inspection; no cervical spinal tenderness Knee swollen, slightly warm Skin: no rashes, warm and dry normal turgor Neurologic: patellar DTR's 2+ bilat, sensation intact no focal motor deficits Psychiatric: A+Ox3, euthymic affect Orientation: cooperative Lymphatic: no cervical or axillary lymphadenopathy no inguinal lymphadenopathy Results & Data Vital Signs (Past 12 Hours) Vital Signs Temp Pulse Resp BP Pulse Ox 03/21/19 07:11 36.4 C L 85 18 115/72 96 Diagnostic Findings Microbiology 03/18/19 14:27 Blood Aerobic Blood Culture - Final No growth in Aerobic bottle after 5 days. 03/18/19 14:27 Blood Anaerobic Blood Culture - Final No growth in Anaerobic bottle after 5 days. 03/18/19 15:26 Blood Aerobic Blood Culture - Final No growth in Aerobic bottle after 5 days. 03/18/19 15:26 Blood Anaerobic Blood Culture - Final No growth in Anaerobic bottle after 5 days. 03/19/19 08:00 Knee Gram Stain - Final 03/19/19 08:00 Knee Aerobic and Anaerobic Culture - Preliminary Staphylococcus aureus Staphylococcus aureus#2 03/19/19 08:00 Knee,Right Gram Stain - Final 03/19/19 08:00 Knee,Right Aerobic and Anaerobic Culture - Preliminary Staphylococcus aureus 03/18/19 16:25 Knee,Right Gram Stain - Final 03/18/19 16:25 Knee,Right Joint Fluid Culture - Final Staphylococcus aureus
--- NOTE | 2019-03-21 14:09 | Progress Note ---
DATE: 03/21/2019 SUBJECTIVE: A 23-year-old gentleman postop day 2 from arthroscopic I&D of a septic knee as well as a partial meniscectomy. He is doing well. Not having much pain. No chest pain or shortness of breath. OBJECTIVE: VITAL SIGNS: Temperature 36.4. Vital signs stable. PHYSICAL EXAMINATION: GENERAL: Reveals a pleasant 23-year-old male who is lying in bed, looks pretty comfortable. EXTREMITIES: Examination of the right leg reveals the dressing to be intact without significant drainage. We did remove the dressing and his incision sites look well healed. A little bit of bloody drainage around the drain site superolaterally. Minimal fluid accumulation in his knee. His calf is soft and supple. He is neurologically intact. CULTURE RESULTS: Culture results are growing methicillin-sensitive staff. ASSESSMENT: A 23-year-old [facility] male postop day 2 from arthroscopic irrigation and debridement, synovectomy of a septic knee with a partial medial meniscectomy, doing pretty well. Pain is controlled. No significant fluid accumulation in his knee. PLAN: Remove his drain today. He has a PICC line already. We are going to plan on 2-4 weeks of IV antibiotics. He is going to be discharged on ceftriaxone. I will be seeing him back in my clinic in 1 week for repeat exam.
--- NOTE | 2019-03-22 16:49 | Discharge Summary ---
ADMITTING PHYSICIAN: Dr. Sanchez. SURGEON: Dr. Edenilson Figueroa. ADMITTING DIAGNOSIS: Right knee septic arthritis. PROCEDURE PERFORMED: Right knee arthroscopy with extensive synovectomy, irrigation, debridement, partial medial meniscectomy. CONSULTS: Dr. Faye with the infectious disease service. HISTORY AND PHYSICAL EXAM: Well documented in patient's chart. HOSPITAL COURSE: The patient was admitted on 03/18/2019. He had a right knee aspiration done in the Emergency Department which did show methicillin sensitive staph aureus. On 03/19/2019 he underwent a right knee arthroscopy with irrigation, debridement, partial medial meniscectomy and tolerated the procedure well. There were no complications. He was transferred to the PACU postoperatively and later to the orthopedic floor for further care. He was given Ancef initially postoperatively and also getting doxycycline which was discontinued. Vital signs were monitored during his hospital stay and remained stable, did not require blood transfusions. There were no complications. Intraoperative cultures also grew methicillin sensitive staph aureus as well. By postoperative day 2, he was tolerating a regular diet, pain was controlled with oral pain medicine. He was participating in physical therapy. His drain had been removed. On postop day 2, he was discharged home, set up with home health services. He did have a PICC line placed and antibiotics were changed to ceftriaxone. He was given printed discharge instructions including once again a new prescription for ceftriaxone. He can continue weightbearing as tolerated. Continue working on his knee range of motion and will follow up approximately 2 weeks postoperatively as well as 2 weeks postoperatively with the infectious disease service.
[2019-03-23 21:27] LABS: Lyme DNA Source Synovial Fluid
== END 2019-03-21 19:56 | disposition home health service (06) | DRG 502 ==
LOC: ED 13:23 → 3W 13:23
DX: S83.241A Other tear of medial meniscus, current injury, right knee, initial encounter; B95.61 Methicillin susceptible Staphylococcus aureus infection as the cause of diseases classified elsewhere; X58.XXXA Exposure to other specified factors, initial encounter; F17.210 Nicotine dependence, cigarettes, uncomplicated; M00.061 Staphylococcal arthritis, right knee